=== PATIENT | male | born 1995 | race Hispanic/Latino ===

== ENCOUNTER 2019-09-05 22:04 | Emergency (ER) | payer OTHER ==
[2019-09-06] MEDS ORDERED: KETOROLAC TROMETHAMINE 30MG/ML ONE (00:24)
== END 2019-09-06 01:14 | disposition home or self-care (01) ==
LOC: EDH 22:04
DX: M54.9 Dorsalgia, unspecified (principal); M54.2 Cervicalgia; Z72.0 Tobacco use; V89.2XXA Person injured in unspecified motor-vehicle accident, traffic, initial encounter; Y93.89 Activity, other specified; Y92.488 Other paved roadways as the place of occurrence of the external cause; Y99.8 Other external cause status
CPT/HCPCS: 96372; 99283; J1885